=== PATIENT | male | born 1955 | race Caucasian/White ===

== ENCOUNTER 2021-08-21 16:53 | Emergency (ER) | payer SELFPAY ==
[2021-08-21] MEDS ORDERED: Ketorolac Tromethamine 30 MG/ML VIAL ONE (17:04)
[2021-08-21] MEDS ORDERED: Morphine 4 MG/ML VIAL ONE ×3 (17:08→19:45)
[2021-08-21] MEDS ORDERED: Cyclobenzaprine 10 MG TAB ONE (17:12)
[2021-08-21] MEDS ORDERED: Dexamethasone 4 MG TAB ONE (17:12)
[2021-08-21] MEDS ORDERED: Gabapentin 100 MG CAP ONE (17:55)
[2021-08-21] MEDS ORDERED: Magnesium 2 GM/50 ML BAG (IN WATER) ONE (17:55)
[2021-08-21] MEDS ORDERED: Diazepam 5 MG TAB ONE (19:44)
[2021-08-21] MEDS ORDERED: Acetaminophen 500 MG TAB ONE (19:45)
[2021-08-21 23:04] LABS: Bilirubin Negative (Negative); Blood, Urine Negative (Negative); Clarity Clear (Clear); Glucose, Urine (Dipstick) Negative (Negative); Ketone, Urine Negative (Negative); Leukocyte Negative (Negative); Nitrite Negative (Negative); Protein, Urine (Dipstick) Negative (Neg-Trace); Urobilinogen 0.2 mg/dL (Less than 2); pH, Urine 7.5 (5.0-9.0)
[2021-08-21 23:07] LABS: Specific Gravity, Urine 1.025 (1.002-1.036)
== END 2021-08-22 00:33 | disposition home or self-care (01) ==
LOC: MADERS 16:53
DX: M54.50 Low back pain, unspecified (principal); M62.830 Muscle spasm of back; N20.0 Calculus of kidney
CPT/HCPCS: 74176; 81003; 96365; 96375; 96376; J1885; J2270; J3475; J8540